=== PATIENT | male | born 1945 | race Caucasian/White ===

== ENCOUNTER 2017-07-15 09:49 | Emergency (ER) | payer OTHER, MEDICARE ==
[~2017-07-15] VITALS: Ht 172.7 cm; Wt 82.6 kg
[~2017-07-15 09:49] MED LIST: ADULT LOW STREN81 M3 PO; ATIVAN0.5 M1 PO; SALT SUPPLEMENT PO; [UNRECOGNIZED DRUG - OTHER] PO; [UNRECOGNIZED DRUG - OTHER] PO
[2017-07-15 11:00] VITALS: BP 142/85
== END 2017-07-15 11:01 | disposition home or self-care (01) ==
LOC: EME 09:49
DX: R55 Syncope and collapse (principal); K21.9 Gastro-esophageal reflux disease without esophagitis; Z87.891 Personal history of nicotine dependence; Z86.79 Personal history of other diseases of the circulatory system; Z87.442 Personal history of urinary calculi; Z85.9 Personal history of malignant neoplasm, unspecified; Z90.89 Acquired absence of other organs
CPT/HCPCS: 82948; 93005